=== PATIENT | female | born 1975 | race Caucasian/White ===

== ENCOUNTER → 2021-03-09 | Day surgery (SDC) | payer OTHER ==
[~2021-03-09] MED LIST: ATROVENT HFA12.9 GM INH; DEXAMETHASONE SOD PHOS INJ 4 MG/ML VIAL ONE; LIDOCAINE 1% W/EPINEPHRINE 20 ML VIAL ONE; LIDOCAINE HCL 2% LOCAL INJ 5 ML SDV VIAL INJ ONE; MUCINEX600 MG PO; ONDANSETRON HCL INJ 2MG/ML 2ML 2 MG/ML VIAL ONE; PANTOPRAZOLE SO40 MG PO; POVIDONE IODINE 0.05% 0.05 % ML PO ONE; PROPOFOL IV EMULSION 10 MG/ML 20 ML VIAL ONE; ROCURONIUM BROMIDE 10 MG/ML 5ML VIAL IV ONE; SEVOFLURANE INHAL SOLN 250 ML PEN BTL ONE; SINGULAIR10 MG PO; SYMBICORT 16010.2 GM INH
[2021-03-09 11:30] VITALS: BP 114/61
== END | disposition home or self-care (01) ==
LOC: OR 07:21
PROVIDERS: ATTEND Otolaryngology Otolaryngology/Facial Plastic Surgery
DX: J35.8 Other chronic diseases of tonsils and adenoids (principal); R23.4 Changes in skin texture; J45.909 Unspecified asthma, uncomplicated; K21.9 Gastro-esophageal reflux disease without esophagitis; K44.9 Diaphragmatic hernia without obstruction or gangrene; Z88.2 Allergy status to sulfonamides; Z87.891 Personal history of nicotine dependence
CPT/HCPCS: 31535; 31622; 43191; 81025; 88305; J1100; J2001; J2405; J2704; 88304